=== PATIENT | male | born 1960 | race Caucasian/White ===

== ENCOUNTER 2018-06-04 10:00 | Observation (INO) ==
[2018-06-04] MEDS ORDERED: SODIUM CHLORIDE 0.9% 1,000 ML IV STA (10:31)
[2018-06-04 10:56] LABS: Basophils # 0.1 10*3/uL (0.0-0.2); Basophils % 1.2 % (0.0-0.8); Eosinophils # 0.2 10*3/uL (0.0-0.87); Eosinophils % 2.6 % (0.00-10.9); Hematocrit 46.2 VOL% (42.0-52.0); Hemoglobin 15.3 GM/DL (14.0-18.0); Immature Granulocytes % 0.8 %; Immature Granulocytes Absolute 0.06 #; Lymphocytes # 1.5 10*3/uL (1.4-4.0); Lymphocytes % 20.2 % (21.2-54.2); Mean Corpuscular HGB Conc 33.1 GM/DL (32-36); Mean Corpuscular Hemoglobin 29 PG (27-34); Mean Corpuscular Volume 88.5 FL (87-102); Mean Platelet Volume 10.2 FL (9.6-12.0); Monocytes # 0.7 10*3/uL (0.11-0.8); Monocytes % 9.5 % (1.7-12.7); Neutrophils # 4.8 10*3/uL (1.4-7.4); Neutrophils % 65.7 % (38.7-73.9); Platelet Count 306 T/CUMM (130-400); Red Blood Count 5.22 MC/CUMM (3.8-5.5); Red Cell Distribution Width 12.6 % (9.3-17.3); White Blood Count 7.3 T/CUMM (4-12)
[2018-06-04 11:12] LABS: Alanine Aminotransferase 33 U/L (16-61); Albumin 3.3 G/DL (3.4-5.0); Alkaline Phosphatase 99 U/L (45-117); Aspartate Amino Transferase 22 U/L (0-37); Blood Urea Nitrogen 11 MG/DL (7-18); Calcium 8.7 MG/DL (8.5-10.1); Glucose 93 MG/DL (74-106); Osmolality,Calculated 279.3 MOS/KG (273-304); Potassium 3.8 MMOL/L (3.5-5.1); Sodium 141 MMOL/L (136-145); Total Protein 7.2 G/DL (6.4-8.3)
[2018-06-04 11:23] LABS: Acetaminophen 2.5 UG/ML (10-30); Salicylate < 2.8 MG/DL (2.8-20)
[2018-06-04 12:34] LABS: Apearance,Urine CLEAR (Clear); Bacteria,Urine Occasional /HPF (Few); Bilirubin,Urine Negative (Negative); Blood, Urine Negative (Negative); Glucose,Urine (UA) Negative (Negative); Ketones,Urine Negative (Negative); Mucus,Urine Occasional /LPF (Occasional); Nitrite,Urine Negative (Negative); Protein,Urine Negative; RBC,Urine <1 /HPF (0-4); Urine Color Straw (Yellow); Urine Urobilinogen < 2.0 EU/DL (0.2-1.0); WBC,Urine <1 /HPF (0-6)
[2018-06-04 12:40] LABS: Barbiturates Screen,Urine Negative (Negative); Benzodiazepines Screen,Urine Negative (Negative); Cannabinoid Screen,Urine Negative (Negative); Opiate Screen,Urine Negative (Negative); Phencyclidine Screen,Urine Negative (Negative)
[2018-06-04] MEDS ORDERED: ONDANSETRON 4 MG/2 ML VIAL IV PRN (14:53)
[2018-06-04] MEDS ORDERED: NICOTINE 21 MG/24 HR PATCH TRANSDERM PRN (14:53)
[2018-06-04] MEDS: LOSARTAN 50 MG TABLET PO SCH (16:49)
[2018-06-04] MEDS: PANTOPRAZOLE 40 MG TABLET PO SCH (16:49)
[2018-06-04] MEDS ORDERED: ENOXAPARIN 40 MG/0.4 ML SYRINGE SUBCUT SCH (21:00)
[2018-06-04] MEDS ORDERED: QUEtiapine 100 MG TABLET PO SCH (21:00)
[2018-06-04] MEDS ORDERED: DIVALPROEX 250 MG TABLET PO SCH (21:00)
[2018-06-05 05:33] LABS: Basophils # 0.1 10*3/uL (0.0-0.2); Basophils % 0.9 % (0.0-0.8); Eosinophils # 0.2 10*3/uL (0.0-0.87); Eosinophils % 2.6 % (0.00-10.9); Hematocrit 43.3 VOL% (42.0-52.0); Hemoglobin 14.3 GM/DL (14.0-18.0); Immature Granulocytes % 0.5 %; Immature Granulocytes Absolute 0.04 #; Lymphocytes # 2.6 10*3/uL (1.4-4.0); Lymphocytes % 29.8 % (21.2-54.2); Mean Corpuscular Hemoglobin 29 PG (27-34); Mean Corpuscular Volume 88.7 FL (87-102); Mean Platelet Volume 10.5 FL (9.6-12.0); Monocytes # 0.8 10*3/uL (0.11-0.8); Monocytes % 9.4 % (1.7-12.7); Neutrophils # 4.9 10*3/uL (1.4-7.4); Neutrophils % 56.8 % (38.7-73.9); Platelet Count 293 T/CUMM (130-400); Red Blood Count 4.88 MC/CUMM (3.8-5.5); Red Cell Distribution Width 12.6 % (9.3-17.3); White Blood Count 8.6 T/CUMM (4-12)
[2018-06-05 05:40] LABS: PT Patient Result 10.4 SECS; Partial Thromboplastin Time 26.7 SECS (0-40)
[2018-06-05 06:15] LABS: Bilirubin,Total 0.5 MG/DL (0.2-1.0); Calcium 8.5 MG/DL (8.5-10.1); Osmolality,Calculated 286.7 MOS/KG (273-304); Potassium 3.3 MMOL/L (3.5-5.1); Risk Ratio 5.24; Thyroid Stimulating Hormone 1.65 uIU/ml (0.358-3.74); Total Protein 6.6 G/DL (6.4-8.3); VLDL CHOLESTEROL 65.2 MG/DL
[2018-06-05] MEDS ORDERED: POTASSIUM CHLORIDE 20 MEQ TABLET PO ONE (08:10)
[2018-06-05] MEDS ORDERED: DIVALPROEX 250 MG TABLET PO SCH (09:00)
[2018-06-05] MEDS: PANTOPRAZOLE 40 MG TABLET PO SCH (09:38)
[2018-06-05] MEDS: LOSARTAN 50 MG TABLET PO SCH (09:39)
[2018-06-05 12:19] VITALS: BP 127/85
[2018-06-05] MEDS ORDERED: MIRTAZAPINE 15 MG TABLET PO SCH (21:00)
[2018-06-06] MEDS ORDERED: ATOMOXETINE HCL 40 MG PO SCH (09:00)
== END 2018-06-05 17:20 ==
LOC: N.ED 10:00 → N.ICU 10:00 → SUATTDRO 14:53 → N.ICU 16:22
PROVIDERS: ADMIT Internal Medicine; ATTEND Internal Medicine